=== PATIENT | female | born 2000 | race Caucasian/White ===

== ENCOUNTER 2020-02-09 17:24 | Emergency (ER) | payer BC, MEDICAID ==
[~2020-02-09] VITALS: Ht 175.3 cm; Wt 90.0 kg
[2020-02-09 17:27] VITALS: BP 140/81
--- NOTE | 2020-02-09 18:11 | NUR ---
pt is 19 yo female c/o rt knee pain since 1100 today, pt was running, stepped in pot hole and heard a loud pop "my knee went sideways", amb with limp, waiting to be evaluated by provider
== END 2020-02-09 18:49 | disposition home or self-care (01) ==
LOC: ER 17:25
DX: M23.91 Unspecified internal derangement of right knee (principal); M25.561 Pain in right knee
CPT/HCPCS: 29505; 73564; 99283

== ENCOUNTER 2020-03-06 19:26 | Emergency (ER) | payer BC, OTHER ==
[~2020-03-06] VITALS: Ht 175.3 cm; Wt 86.4 kg
[2020-03-06 19:29] VITALS: BP 139/77
== END 2020-03-06 21:45 | disposition home or self-care (01) ==
LOC: ER 19:26
DX: S83.004A Unspecified dislocation of right patella, initial encounter (principal); M25.562 Pain in left knee; X58.XXXA Exposure to other specified factors, initial encounter; Y93.89 Activity, other specified; Y92.89 Other specified places as the place of occurrence of the external cause; Y99.8 Other external cause status
CPT/HCPCS: 99284

== ENCOUNTER 2022-08-15 20:48 | Emergency (ER) | payer SELFPAY ==
[~2022-08-15] VITALS: Ht 175.3 cm; Wt 100.0 kg
[2022-08-15 21:47] LABS: HEMOGLOBIN 12.6 g/dl (12.0-16.0); WHITE BLOOD COUNT 9.2 X10'3 (4.5-11.0)
[2022-08-15 21:49] LABS: BASOPHILS % (AUTO) 0.3 % (0-1); EOSINOPHILS # (AUTO) 0.2 X10'3 (0-0.9); EOSINOPHILS % (AUTO) 1.6 % (0-6); HEMATOCRIT 37.1 % (35.0-45.0); LYMPHOCYTES # (AUTO) 2.7 X10'3 (1.1-4.8); LYMPHOCYTES % (AUTO) 29.8 % (21-51); MEAN CORPUSCULAR HGB CONC 33.9 g/dL (33.0-36.5); MEAN CORPUSCULAR VOLUME 88.6 FL (78-98); MEAN PLATELET VOLUME 7.7 FL (7.4-10.4); MONOCYTES # (AUTO) 0.7 X10'3 (0-0.9); MONOCYTES % (AUTO) 7.4 % (2-12); NEUTROPHILS # (AUTO) 5.6 X10'3 (1.8-7.7); NEUTROPHILS % (AUTO) 60.9 % (42-75); PLATELET COUNT 227 X10'3 (140-440); RED BLOOD COUNT 4.19 X10'6 (4.20-5.60); RED CELL DISTRIBUTION WIDTH 13.2 % (11.5-14.5)
[2022-08-15 22:15] LABS: CLARITY,URINE CLEAR (Clear); COLOR,URINE YELLOW (Yellow); GLUCOSE, URINE NEGATIVE (Neg); KETONES,URINE NEGATIVE (Neg); LEUKOCYTE ESTERASE ,URINE NEGATIVE (Neg); NITRITES, URINE NEGATIVE (Neg); OCCULT BLOOD,URINE NEGATIVE (Neg); PROTEIN,URINE NEGATIVE (Neg); URINE HCG POSITIVE (NEG); UROBILINOGEN,URINE 0.2 E.U/dL (0.2-1.0)
[2022-08-15 22:20] LABS: ALANINE AMINOTRANSFERASE 23 U/L (12-78); ALBUMIN/GLOBULIN RATIO 1.1 (1.1-1.5); ALKALINE PHOSPHATASE 98 IU/L (46-116); ASPARTATE AMINO TRANSFERASE 10 U/L (10-37); BETA HCG,QUANTITATIVE 24 mIU/ml; BILIRUBIN,TOTAL 0.2 MG/DL (0.1-1.0); BLOOD UREA NITROGEN 11 MG/DL (7-18); BUN/CREATININE RATIO 16.9 (6.6-38.0); CALCIUM 9.4 MG/DL (8.5-10.1); CREATININE 0.65 MG/DL (0.40-0.90); GLUCOSE 126 MG/DL (70-104); TOTAL CARBON DIOXIDE 28.1 MMOL/L (24-32); TOTAL PROTEIN 7.5 G/DL (6.4-8.2); eGFR > 90 ML/MIN
[2022-08-15 22:39] LABS: UA COLLECTION TYPE VOIDED
[2022-08-15 23:02] LABS: ANION GAP 7 (8-16); CHLORIDE 101 MMOL/L (99-107); POTASSIUM 3.5 MMOL/L (3.5-5.1); SODIUM 136 MMOL/L (135-145)
[2022-08-15 23:18] VITALS: BP 150/84
--- NOTE | 2022-08-15 23:18 | NUR ---
I AGREE WITH [employer]ESSOR GENERAL ASSESSMENT
== END 2022-08-15 23:21 | disposition home or self-care (01) ==
LOC: ER 20:49
DX: O03.9 Complete or unspecified spontaneous abortion without complication (principal); Z3A.01 Less than 8 weeks gestation of pregnancy; Z88.0 Allergy status to penicillin
CPT/HCPCS: 76801; 80053; 81003; 81025; 84702; 85025; 99284

== ENCOUNTER 2024-03-12 10:58 | Emergency (ER) | payer BC ==
[~2024-03-12] VITALS: Ht 175.3 cm; Wt 111.9 kg
[2024-03-12 11:06] VITALS: TEMP 98.2
[2024-03-12 12:44] LABS: BASOPHILS % (AUTO) 0.2 % (0-1); EOSINOPHILS # (AUTO) 0.2 X10'3 (0-0.9); EOSINOPHILS % (AUTO) 2.1 % (0-6); HEMATOCRIT 40.1 % (35.0-45.0); HEMOGLOBIN 12.9 g/dl (12.0-16.0); LYMPHOCYTES # (AUTO) 1.8 X10'3 (1.1-4.8); LYMPHOCYTES % (AUTO) 24.4 % (21-51); MEAN CORPUSCULAR HEMOGLOBIN 27.3 PG (27.0-31.0); MEAN CORPUSCULAR HGB CONC 32.2 g/dL (33.0-36.5); MEAN CORPUSCULAR VOLUME 84.9 FL (78-98); MEAN PLATELET VOLUME 7.7 FL (7.4-10.4); MONOCYTES # (AUTO) 0.7 X10'3 (0-0.9); MONOCYTES % (AUTO) 9.7 % (2-12); NEUTROPHILS # (AUTO) 4.6 X10'3 (1.8-7.7); NEUTROPHILS % (AUTO) 63.6 % (42-75); PLATELET COUNT 194 X10'3 (140-440); RED BLOOD COUNT 4.73 X10'6 (4.20-5.60); RED CELL DISTRIBUTION WIDTH 16.4 % (11.5-14.5); WHITE BLOOD COUNT 7.3 X10'3 (4.5-11.0)
[2024-03-12 12:54] LABS: ALBUMIN 3.6 G/DL (3.4-5.0); ANION GAP 9 (8-16); BLOOD UREA NITROGEN 7 MG/DL (7-18); BUN/CREATININE RATIO 10.8 (10.0-20.0); CALCIUM 9.3 MG/DL (8.5-10.1); CHLORIDE 104 MMOL/L (99-107); CREATININE 0.65 MG/DL (0.40-0.90); GLUCOSE 91 MG/DL (70-104); POTASSIUM 3.9 MMOL/L (3.5-5.1); SODIUM 139 MMOL/L (135-145); TOTAL CARBON DIOXIDE 26.5 MMOL/L (24-32); eCRCL 138 ML/MIN; eGFR > 90 ML/MIN
[2024-03-12 12:56] LABS: INR 0.9 INR; PROTHROMBIN TIME 10.2 SECONDS (9.0-12.0)
[2024-03-12] MEDS ORDERED: RIVA15TA PO (13:44)
[2024-03-12] MEDS: rivaroxaban 15mg tablet PO STA (13:47)
[2024-03-12 14:07] VITALS: BP 128/85; PULSE 95; RESP 16; O2SAT 98
== END 2024-03-12 14:11 | disposition home or self-care (01) ==
LOC: ER 10:59
DX: I82.412 Acute embolism and thrombosis of left femoral vein (principal); Z91.013 Allergy to seafood; Z88.0 Allergy status to penicillin
CPT/HCPCS: 36415; 80048; 85025; 85610; 93005; 93971; 99284